=== PATIENT | female | born 1960 ===

== ENCOUNTER 2017-02-12 19:28 | Emergency (ER) | payer MEDICAID ==
[2017-02-12 19:34] VITALS: BP 148/76; PULSE 75; RESP 18; TEMP 97.5; O2SAT 100
--- NOTE | 2017-02-12 19:45 | ED PDOC ---
Upper Extremity Pain/Injury Time Seen by Provider: 02/12/17 19:30 Chief Complaint (Nursing): Upper Extremity Problem/Injury Chief Complaint (Provider): Upper Extremity Problem History Per: Patient History/Exam Limitations: no limitations Onset/Duration Of Symptoms: Days (2x weeks) Current Symptoms Are (Timing): Still Present Severity: Moderate Additional Complaint(s): 56 year old female with a pertinent medical history of hypertension presents to the ED with complaints of left shoulder pain that started 2x weeks ago and has gradually worsened. She denies any injury or trauma to the area. She reports taking motrin and tylenol (last time was 8x hours prior to arrival) with no relief. She denies having fevers and chills. PMD: Not provided. Past Medical History Reviewed: Historical Data, Nursing Documentation, Vital Signs Vital Signs: Last Vital Signs Temp 97.5 F L 02/12/17 19:32 Pulse 75 02/12/17 19:32 Resp 18 02/12/17 19:32 BP 148/76 02/12/17 19:32 Pulse Ox 100 02/12/17 19:32 - Medical History PMH: Asthma, Back Problems, Bronchitis, Diabetes, Gastritis, Hiatal Hernia, HTN Denies: Chronic Kidney Disease - Surgical History Surgical History: Endoscopy - Family History Family History: States: Unknown Family Hx - Social History Alcohol: None Drugs: Denies - Home Medications Home Medications: Ambulatory Orders Medication Instructions Recorded Lisinopril [Lisinopril] 1 tab PO DAILY 03/08/15 amLODIPine [Norvasc] 1 tab PO DAILY 03/08/15 Omeprazole 20 mg PO DAILY #30 tcp 05/05/15 Famotidine [Pepcid] 20 mg PO BID PRN #10 tab 03/15/16 Albuterol HFA [Ventolin HFA 90 2 puff IH Q4H #1 puff 03/28/16 mcg/actuation (8 g)] Dicyclomine [Dicyclomine HCl] 10 mg PO QID #30 cap 07/01/16 Omeprazole 20 mg PO DAILY #30 capsule. 07/01/16 Naproxen [Naprosyn Tab] 375 mg PO Q8 PRN #15 tab 02/12/17 - Allergies Allergies/Adverse Reactions: Allergies Allergy/AdvReac Type Severity Reaction Status Date / Time prednisone Allergy URTICARIA Verified 07/01/16 19:53 Review of Systems ROS Statement: Except As Marked, All Systems Reviewed And Found Negative Constitutional: Negative for: Fever, Chills Musculoskeletal: Positive for: Shoulder Pain (left shoulder) Physical Exam - Reviewed Nursing Documentation Reviewed: Yes Vital Signs Reviewed: Yes - Physical Exam Appears: Positive for: Well, Non-toxic, No Acute Distress Head Exam: Positive for: ATRAUMATIC, NORMOCEPHALIC Skin: Positive for: Normal Color, Warm, Dry Neck: Positive for: Normal, Painless ROM, Supple Cardiovascular/Chest: Positive for: Regular Rate, Rhythm Respiratory: Positive for: Normal Breath Sounds. Negative for: Respiratory Distress Extremity: Positive for: Tenderness ( tenderness along AC, subscalpularis and proximal bicep). Negative for: Normal ROM (limited range of motion of left shoulder due to pain), Deformity (no obvious deformity ) Neurologic/Psych: Positive for: Alert, Oriented (3x) - ECG O2 Sat by Pulse Oximetry: 100 (RA) Pulse Ox Interpretation: Normal - Progress ED Course And Treament: xry of shoulder : neg for any fx; neg for signs of calcifications. Placed on shoulder sling Medical Decision Making Medical Decision Makin:30 Initial impression: 56 year old female with left shoulder pain. Initial plan: * toradol 30mg IM * XRay shoulder left * reevaluation Scribe Attestation: Documented by Citlaly Perez, acting as a scribe for Molly Sinha PA-C. Provider Scribe Attestation: All medical record entries made by the Scribe were at my direction and personally dictated by me. I have reviewed the chart and agree that the record accurately reflects my personal performance of the history, physical exam, medical decision making, and the department course for this patient. I have also personally directed, reviewed, and agree with the discharge instructions and disposition. Disposition - Clinical Impression Clinical Impression: Shoulder pain - Patient ED Disposition Is Patient to be Admitted: No - Disposition Referrals: Bryant Gonzalez MD [Staff Provider] - Disposition: Routine/Home Disposition Time: 21:35 Condition: FAIR Prescriptions: Naproxen [Naprosyn Tab] 375 mg PO Q8 PRN #15 tab PRN Reason: Pain, Moderate (4-7) Instructions: Tendinitis (ED) Forms: [facility] ED School/Work Excuse
--- NOTE | 2017-02-13 10:18 | RAD ---
PROCEDURE: Radiographs of the Left Shoulder HISTORY: SHOULDER INJURY COMPARISON: No prior. FINDINGS: BONES: Mild irregularity along the outer edge of the humeral head. This could be degenerative in etiology. However, given history of trauma underline tendinous/ ligamentous injury cannot be entirely excluded. JOINTS: Mild degenerative changes. SOFT TISSUES: Punctate calcifications along the humeral head. OTHER FINDINGS: None. IMPRESSION: Punctate calcifications along the humeral head. There is mild irregularity of the artery which of the humeral head. Underlying tendinous/ligamentous injury cannot be entirely excluded. No displaced fracture or dislocation. Followup recommended.
== END 2017-02-12 21:31 | disposition home or self-care (01) ==
LOC: H.ER 19:28
DX: M25.512 Pain in left shoulder (principal); E11.9 Type 2 diabetes mellitus without complications; I10 Essential (primary) hypertension; J45.909 Unspecified asthma, uncomplicated

== ENCOUNTER 2017-09-24 09:01 | Emergency (ER) | payer MEDICAID ==
--- NOTE | 2017-09-24 10:13 | ED PDOC ---
HPI: Headache Time Seen by Provider: 09/24/17 09:46 Chief Complaint (Nursing): Dizziness/Lightheaded Chief Complaint (Provider): Dizziness History Per: Patient History/Exam Limitations: no limitations Onset/Duration Of Symptoms: Days (1) Additional Complaint(s): Pt reports sensation of room spinning since this morning, worse when lying flat , associated with frontal VARGAS. Had similar episode a year ago and evaluated in ED, no meds prescribed. Denies CP, SOB, nausea, vomiting, paresthesias, weakness, visual changes. Also c/o throbbing behind both knees that started "a couple minutes ago". Past Medical History Reviewed: Nursing Documentation, Vital Signs - Medical History PMH: Asthma, Back Problems, Bronchitis, Diabetes, Gastritis, Hiatal Hernia, HTN Denies: Chronic Kidney Disease - Surgical History Surgical History: Endoscopy - Family History Family History: States: Unknown Family Hx - Social History Current smoker - smoking cessation education provided: No Alcohol: None - Home Medications Home Medications: Ambulatory Orders Medication Instructions Recorded Lisinopril [Lisinopril] 1 tab PO DAILY 03/08/15 amLODIPine [Norvasc] 1 tab PO DAILY 03/08/15 Omeprazole 20 mg PO DAILY #30 tcp 05/05/15 Famotidine [Pepcid] 20 mg PO BID PRN #10 tab 03/15/16 Albuterol HFA [Ventolin HFA 90 2 puff IH Q4H #1 puff 03/28/16 mcg/actuation (8 g)] Dicyclomine [Dicyclomine HCl] 10 mg PO QID #30 cap 07/01/16 Omeprazole 20 mg PO DAILY #30 capsule. 07/01/16 Naproxen [Naprosyn Tab] 375 mg PO Q8 PRN #15 tab 02/12/17 Meclizine [Meclizine*] 25 mg PO Q6 PRN #20 tab 09/24/17 - Allergies Allergies/Adverse Reactions: Allergies Allergy/AdvReac Type Severity Reaction Status Date / Time prednisone Allergy URTICARIA Verified 07/01/16 19:53 Review of Systems Constitutional: Negative for: Fever, Chills Eyes: Negative for: Vision Change ENT: Negative for: Ear Pain Cardiovascular: Negative for: Chest Pain, Palpitations Respiratory: Negative for: Cough, Shortness of Breath Gastrointestinal: Negative for: Nausea, Vomiting, Abdominal Pain, Diarrhea Genitourinary Female: Negative for: Dysuria, Hematuria Skin: Negative for: Rash, Lesions Neurological: Positive for: Headache, Dizziness. Negative for: Weakness, Numbness, Incoordination, Change in Speech, Confusion, Seizures, Altered Mental Status Physical Exam - Reviewed Nursing Documentation Reviewed: Yes Vital Signs Reviewed: Yes - Physical Exam Appears: Positive for: Well, No Acute Distress Head Exam: Positive for: ATRAUMATIC, NORMAL INSPECTION Skin: Positive for: Normal Color, Warm, Dry Eye Exam: Positive for: Normal appearance, EOMI, PERRL, Nystagmus (Horizontal) Neck: Positive for: Normal, Painless ROM, Supple Cardiovascular/Chest: Positive for: Regular Rate, Rhythm Respiratory: Positive for: Normal Breath Sounds Gastrointestinal/Abdominal: Positive for: Normal Exam, Bowel Sounds, Soft Extremity: Positive for: Normal ROM, Calf Tenderness (Bilateral). Negative for : Deformity, Swelling Neurologic/Psych: Positive for: Alert, sample selector II-XII, Oriented, Cerebellar Tests ( WNL). Negative for: Motor/Sensory Deficits, Aphasia, Facial Droop - Laboratory Results Result Diagrams: 09/24/17 10:35 09/24/17 10:35 Medical Decision Making Medical Decision Makin yo female with recurrent vertigo. - labs - EKG - CXR - CT head Time: 11:08 CT Head without Contrast FINDINGS: HEMORRHAGE: No acute parenchymal, subarachnoid nor extra-axial hemorrhage. BRAIN: Questionable minimal chronic periventricular white matter ischemic changes. No obvious parenchymal nor extra-axial mass or collection seen on this non contrast study. VENTRICLES: No obstructive hydrocephalus. CALVARIUM: Calvarium appears intact. PARANASAL SINUSES: Unremarkable as visualized. No significant inflammatory changes. MASTOID AIR CELLS: Unremarkable as visualized. No inflammatory changes. OTHER FINDINGS: Visualized orbits and contents appear grossly unremarkable so far as can be seen. IMPRESSION: No evidence of acute intracranial hemorrhage or large acute infarct. Suspect minimal chronic periventricular white matter ischemic changes. Time: 11:25 Chest X-Ray FINDINGS: LUNGS: Poor inspiration with low lung volumes, crowded bronchovascular markings and mild bibasilar atelectasis. PLEURA: No significant pleural effusion identified. No pneumothorax apparent. CARDIOVASCULAR: Heart size is upper limits of normal/ borderline enlarged. OSSEOUS STRUCTURES: No significant abnormalities. VISUALIZED UPPER ABDOMEN: Normal. OTHER FINDINGS: None. IMPRESSION: Poor inspiration with low lung volumes, crowded bronchovascular markings and mild bibasilar atelectasis. Disposition - Clinical Impression Clinical Impression: Vertigo - Disposition Referrals: [facility] [Outside] Disposition: Routine/Home Disposition Time: 14:38 Condition: IMPROVED Additional Instructions: FOLLOW-UP WITH JOSÉ MIGUEL WITHIN 2 DAYS FOR REEVALUATION. Prescriptions: Meclizine [Meclizine*] 25 mg PO Q6 PRN #20 tab PRN Reason: Dizziness Instructions: Vertigo (ED) Forms: [employer] (Croatian)
[2017-09-24 10:49] LABS: BASO # 0.1 K/uL (0.0-0.2); BASO % 1.2 % (0.0-2.0); EOS # 0.3 K/uL (0.0-0.7); EOS % 3.8 % (0.0-4.0); HEMOGLOBIN 12.3 g/dL (12.0-16.0); LYMPH # 1.9 K/uL (1.0-4.3); LYMPH % 25.4 % (20.0-40.0); MEAN CELL VOLUME 78.5 fl (81.0-99.0); MEAN CORPUSCULAR HEMOGLOBIN 25.7 pg (27.0-31.0); MEAN CORPUSCULAR HGB CONC 32.7 g/dL (33.0-37.0); MEAN PLATELET VOLUME 9.3 fl (7.2-11.7); MONO # 0.4 K/uL (0.0-0.8); MONO % 5.7 % (0.0-10.0); NEUT # 4.9 K/uL (1.8-7.0); NEUT % 63.9 % (50.0-75.0); RBC 4.8 Mil/uL (3.80-5.20); RED CELL DISTRIBUTION WIDTH 16.6 % (11.5-14.5); WHITE BLOOD COUNT 7.6 K/uL (4.8-10.8)
[2017-09-24 10:58] LABS: SQUAMOUS EPITHIAL 1 /hpf (0-5); URINE BACTERIA RARE (<OCC); URINE BILIRUBIN NEGATIVE (NEGATIVE); URINE BLOOD NEGATIVE (NEGATIVE); URINE CLARITY CLEAR (Clear); URINE COLOR YELLOW (YELLOW); URINE GLUCOSE (UA) NEG (Normal); URINE LEUKOCYTE ESTERASE NEG Leu/uL (Negative); URINE NITRATE NEGATIVE (NEGATIVE); URINE PROTEIN NEGATIVE (NEGATIVE); URINE UROBILINOGEN 0.2-1.0 mg/dL (0.2-1.0)
[2017-09-24 11:07] LABS: ALB/GLOB RATIO 0.9 (1.0-2.1); ALBUMIN 4.1 g/dL (3.5-5.0); ALT/SGPT 19 U/L (9-52); AST/SGOT 28 U/L (14-36); BLOOD UREA NITROGEN 14 mg/dl (7-17); CALCIUM 9.2 mg/dL (8.4-10.2); GFR AFRICAN-AMERICAN > 60; GFR NON-AFRICAN AMERICAN > 60; PARTIAL THROMBOPLASTIN TIME 32.4 Seconds (25.6-37.1); PROTHROMBIN TIME 11.4 Seconds (9.8-13.1)
--- NOTE | 2017-09-24 11:09 | CT ---
PROCEDURE: CT HEAD WITHOUT CONTRAST. HISTORY: Vertigo COMPARISON: None available. TECHNIQUE: Axial computed tomography images were obtained through the head/brain without intravenous contrast. Radiation dose: Total exam DLP = 823.07 mGy-cm. This CT exam was performed using one or more of the following dose reduction techniques: Automated exposure control, adjustment of the mA and/or kV according to patient size, and/or use of iterative reconstruction technique. FINDINGS: HEMORRHAGE: No acute parenchymal, subarachnoid nor extra-axial hemorrhage. BRAIN: Questionable minimal chronic periventricular white matter ischemic changes. No obvious parenchymal nor extra-axial mass or collection seen on this non contrast study. VENTRICLES: No obstructive hydrocephalus. CALVARIUM: Calvarium appears intact. PARANASAL SINUSES: Unremarkable as visualized. No significant inflammatory changes. MASTOID AIR CELLS: Unremarkable as visualized. No inflammatory changes. OTHER FINDINGS: Visualized orbits and contents appear grossly unremarkable so far as can be seen. IMPRESSION: No evidence of acute intracranial hemorrhage or large acute infarct. Suspect minimal chronic periventricular white matter ischemic changes.
--- NOTE | 2017-09-24 11:27 | RAD ---
HISTORY: Dizziness COMPARISON: Comparison chest dated 03/28/2016. TECHNIQUE: Chest PA and lateral FINDINGS: LUNGS: Poor inspiration with low lung volumes, crowded bronchovascular markings and mild bibasilar atelectasis. PLEURA: No significant pleural effusion identified. No pneumothorax apparent. CARDIOVASCULAR: Heart size is upper limits of normal/ borderline enlarged. OSSEOUS STRUCTURES: No significant abnormalities. VISUALIZED UPPER ABDOMEN: Normal. OTHER FINDINGS: None. IMPRESSION: Poor inspiration with low lung volumes, crowded bronchovascular markings and mild bibasilar atelectasis.
--- NOTE | 2017-09-24 12:22 | US ---
PROCEDURE: Bilateral lower extremity venous duplex Doppler. HISTORY: BLE calf pain COMPARISON: Right lower extremity ultrasound dated 06/05/2016. TECHNIQUE: Bilateral common femoral, superficial femoral, popliteal and posterior tibial veins were evaluated. Flow was assessed with color Doppler, compressibility, assessment of phasic flow and augmentation response. FINDINGS: COMMON FEMORAL VEIN: Right CFV: Unremarkable. Left CFV: Unremarkable. SUPERFICIAL FEMORAL VEIN: Right SFV: Unremarkable. Left SFV: Unremarkable. POPLITEAL VEIN: Right Popliteal: Unremarkable. Left Popliteal: Unremarkable. POSTERIOR TIBIAL VEIN: Right PTV: Unremarkable. Left PTV: Unremarkable. OTHER FINDINGS: None. IMPRESSION: No evidence of deep venous thrombosis.
--- NOTE | 2017-09-24 13:21 | CARD ---
APPROVED REPORT EKG Measurement Heart [id number] [id number] [id number] <Conclusion> Normal sinus rhythm
== END 2017-09-24 15:00 | disposition home or self-care (01) ==
LOC: H.ER 09:01
DX: R42 Dizziness and giddiness (principal); E11.9 Type 2 diabetes mellitus without complications; I10 Essential (primary) hypertension; J45.909 Unspecified asthma, uncomplicated

== ENCOUNTER 2018-07-08 22:29 | Emergency (ER) | payer MEDICAID ==
[2018-07-08] MEDS ORDERED: Sodium Chloride 0.9% 1,000 ML IV STA (23:19)
--- NOTE | 2018-07-08 23:31 | ED PDOC ---
HPI: Female Pain Time Seen by Provider: 07/08/18 23:12 Chief Complaint (Nursing): Female Genitourinary Chief Complaint (Provider): Pain with urination History Per: Patient History/Exam Limitations: no limitations Onset/Duration Of Symptoms: Days (x2) Current Symptoms Are (Timing): Still Present Associated Symptoms: denies: Fever, Nausea, Vomiting, Diarrhea Additional Complaint(s): 57 year old female presents to the ED complaining of 2 days of worsening lower abdominal pain and pain with urination. Denies nausea, vomiting, diarrhea, or any past medical history. Patient states she had a urinary tract infection many years ago and feels this is the same. Denies fever, vaginal pain, vaginal bleeding, or vaginal discharge. LMP was several years ago. PMD: Kristian Ramirez Past Medical History Reviewed: Historical Data, Nursing Documentation, Vital Signs Vital Signs: Last Vital Signs Temp 97.7 F 07/08/18 22:34 Pulse 98 H 07/08/18 22:34 Resp 16 07/08/18 22:34 BP 174/90 H 07/08/18 22:34 Pulse Ox 100 07/08/18 22:34 - Medical History PMH: Asthma, Back Problems, Bronchitis, Diabetes, Gastritis, Hiatal Hernia, HTN Denies: Chronic Kidney Disease - Surgical History Surgical History: Endoscopy - Family History Family History: States: Unknown Family Hx - Home Medications Home Medications: Ambulatory Orders Medication Instructions Recorded Lisinopril 1 tab PO DAILY 03/08/15 amLODIPine [Norvasc] 1 tab PO DAILY 03/08/15 Omeprazole 20 mg PO DAILY #30 tcp 05/05/15 Famotidine [Pepcid] 20 mg PO BID PRN #10 tab 03/15/16 Albuterol HFA [Ventolin HFA 90 2 puff IH Q4H #1 puff 03/28/16 mcg/actuation (8 g)] Dicyclomine [Dicyclomine HCl] 10 mg PO QID #30 cap 07/01/16 Omeprazole 20 mg PO DAILY #30 capsule. 07/01/16 Naproxen [Naprosyn Tab] 375 mg PO Q8 PRN #15 tab 02/12/17 Meclizine [Meclizine*] 25 mg PO Q6 PRN #20 tab 09/24/17 Meclizine [Meclizine*] 25 mg PO ASDIR #45 tab 04/20/18 Nitrofurantoin Macrocrystals 100 mg PO BID #10 cap 07/09/18 [Macrobid] - Allergies Allergies/Adverse Reactions: Allergies Allergy/AdvReac Type Severity Reaction Status Date / Time prednisone Allergy URTICARIA Verified 04/19/18 23:05 Review of Systems ROS Statement: Except As Marked, All Systems Reviewed And Found Negative Constitutional: Negative for: Fever Gastrointestinal: Positive for: Abdominal Pain (lower). Negative for: Nausea, Vomiting, Diarrhea Genitourinary Female: Positive for: Dysuria. Negative for: Vaginal Discharge, Vaginal Bleeding, Other (vaginal pain) Physical Exam - Reviewed Nursing Documentation Reviewed: Yes Vital Signs Reviewed: Yes - Physical Exam Appears: Positive for: Non-toxic, No Acute Distress Head Exam: Positive for: ATRAUMATIC, NORMOCEPHALIC Skin: Positive for: Normal Color, Warm, Dry Eye Exam: Positive for: Normal appearance Neck: Positive for: Normal, Painless ROM Cardiovascular/Chest: Positive for: Regular Rate, Rhythm Respiratory: Positive for: Normal Breath Sounds. Negative for: Wheezing, Respiratory Distress Gastrointestinal/Abdominal: Positive for: Tenderness (suprapubic tenderness). Negative for: Other (flank pain) Extremity: Positive for: Normal ROM Neurologic/Psych: Positive for: Alert, Oriented. Negative for: Motor/Sensory Deficits - Laboratory Results Result Diagrams: 07/08/18 23:41 07/08/18 23:41 - ECG O2 Sat by Pulse Oximetry: 100 (RA) Pulse Ox Interpretation: Normal Medical Decision Making Medical Decision Making: Initial Impression: workup for UTI Initial Plan: --Basic labs --Urinalysis --IV fluids --Toradol 30mg IV --Reassess patient Scribe Attestation: Documented by Jeyson Mederos acting as a scribe for Citlaly Gomes MD. Provider Scribe Attestation: All medical record entries made by the Scribe were at my direction and personally dictated by me. I have reviewed the chart and agree that the record accurately reflects my personal performance of the history, physical exam, med ica decision making, and the department course for this patient. I have also personally directed, reviewed, and agree with the discharge instructions and disposition. Disposition - Clinical Impression Clinical Impression: Female genitourinary symptoms, Urinary tract infection, High blood sugar - Disposition Disposition: Routine/Home Disposition Time: 00:50 Condition: IMPROVED Additional Instructions: Take medications as prescribed. Follow up with primary medical doctor regarding high blood sugar and high blood pressure. Return to the emergency department if symptoms worsen or if new symptoms develop. Prescriptions: Nitrofurantoin Macrocrystals [Macrobid] 100 mg PO BID #10 cap Instructions: Urinary Tract Infection, Adult (DC), Hyperglycemia, Adult (DC) Forms: [employer] (Tanzanian) Print Language: MAORI
[2018-07-08 23:42] LABS: SQUAMOUS EPITHIAL 3 /hpf (0-5); URINE BILIRUBIN NEGATIVE (NEGATIVE); URINE BLOOD SMALL (NEGATIVE); URINE CLARITY SLIGHTY-CLOUDY (Clear); URINE COLOR YELLOW (YELLOW); URINE GLUCOSE (UA) >=500 mg/dL (Normal); URINE LEUKOCYTE ESTERASE MOD Leu/uL (Negative); URINE PROTEIN NEGATIVE (NEGATIVE)
[2018-07-08 23:49] LABS: BASO # 0.1 K/uL (0.0-0.2); BASO % 1.1 % (0.0-2.0); EOS # 0.3 K/uL (0.0-0.7); EOS % 3.2 % (0.0-4.0); HEMOGLOBIN 12.8 g/dL (12.0-16.0); LYMPH # 2.2 K/uL (1.0-4.3); LYMPH % 27.3 % (20.0-40.0); MEAN CELL VOLUME 84.4 fl (81.0-99.0); MEAN CORPUSCULAR HEMOGLOBIN 27.8 pg (27.0-31.0); MEAN CORPUSCULAR HGB CONC 32.9 g/dL (33.0-37.0); MEAN PLATELET VOLUME 10.2 fl (7.2-11.7); MONO # 0.6 K/uL (0.0-0.8); MONO % 7.2 % (0.0-10.0); NEUT % 61.2 % (50.0-75.0); RBC 4.61 Mil/uL (3.80-5.20); RED CELL DISTRIBUTION WIDTH 14.8 % (11.5-14.5); WHITE BLOOD COUNT 8.1 K/uL (4.8-10.8)
[2018-07-09 00:01] LABS: ALT/SGPT 32 U/L (9-52); AST/SGOT 25 U/L (14-36); BLOOD UREA NITROGEN 14 mg/dl (7-17); CALCIUM 8.8 mg/dL (8.4-10.2); GFR NON-AFRICAN AMERICAN > 60
[2018-07-09 01:00] VITALS: BP 168/88; PULSE 82; RESP 18; TEMP 97.9
[2018-07-09 04:47] VITALS: O2SAT 100
== END 2018-07-09 01:00 | disposition home or self-care (01) ==
LOC: H.ER 22:29
DX: N39.0 Urinary tract infection, site not specified (principal); E11.65 Type 2 diabetes mellitus with hyperglycemia; I10 Essential (primary) hypertension; J45.909 Unspecified asthma, uncomplicated
CPT/HCPCS: 80053; 81003; 82948; 85025; 96361; 96374; 99284; J1885; J7030